=== PATIENT | female | born 1965 | race African-American/Black ===

== ENCOUNTER 2018-01-16 12:35 | Day surgery (SDC) | payer OTHER ==
[~2018-01-16] VITALS: Ht 170.2 cm; Wt 127.0 kg
[2018-01-16] MEDS ORDERED: methylPREDNISolone ACETATE 80 MG/ML IM ONE (12:36)
[2018-01-16] MEDS ORDERED: BUPIVACAINE /PF 0.25% 30 ML VIAL INJ ONE (12:36)
[2018-01-16] MEDS ORDERED: IOHEXOL 300 mgI/mL, 50 mL INFUS..BTL IV ONE (12:36)
[2018-01-16] MEDS ORDERED: LIDOCAINE 2%, 20 ML MDV INJ ONE (12:36)
[2018-01-16] MEDS ORDERED: DIPHENHYDRAMINE INJ 50 MG/ML VIAL IVP ONE (13:58)
[2018-01-16] MEDS ORDERED: MIDAZOLAM HCL 5 MG/5 ML VIAL IVP ONE (14:00)
[2018-01-16] MEDS ORDERED: MIDAZOLAM HCL 5 MG/5 ML VIAL ONE (16:48)
[2018-01-16 17:35] VITALS: BP_SYST 146
[2018-01-16] MEDS ORDERED: DIPHENHYDRAMINE INJ 50 MG/ML VIAL ONE (18:32)
== END 2018-01-16 16:00 | disposition home or self-care (01) ==
LOC: SDS 12:35 → SMU 12:36 → SDS 16:00
PROVIDERS: ATTEND Internal Medicine
DX: M51.16 Intervertebral disc disorders with radiculopathy, lumbar region (principal); E11.9 Type 2 diabetes mellitus without complications; Z79.899 Other long term (current) drug therapy
CPT/HCPCS: 62323; J1040; J1200; J2001; J2250; J3490; J7120; Q9967

== ENCOUNTER 2018-05-29 10:23 | Day surgery (SDC) | payer OTHER ==
[~2018-05-29] VITALS: Ht 170.2 cm; Wt 127.0 kg
[2018-05-29] MEDS ORDERED: BUPIVACAINE /PF 0.25% 30 ML VIAL INJ ONE (10:24)
[2018-05-29] MEDS ORDERED: LIDOCAINE 2%, 20 ML MDV INJ ONE (10:24)
[2018-05-29] MEDS ORDERED: methylPREDNISolone ACETATE 40 MG/ML IM ONE (10:24)
[2018-05-29] MEDS ORDERED: IOPAMIDOL 50 ML VIAL IV ONE (10:24)
[2018-05-29] MEDS ORDERED: MIDAZOLAM HCL 5 MG/5 ML VIAL ONE (11:56)
[2018-05-29] MEDS ORDERED: DIPHENHYDRAMINE INJ 50 MG/ML VIAL ONE (11:56)
[2018-05-29 12:20] VITALS: BP_SYST 140
== END 2018-05-29 13:09 | disposition home or self-care (01) ==
LOC: SDS 10:23
PROVIDERS: ATTEND Internal Medicine
DX: M51.16 Intervertebral disc disorders with radiculopathy, lumbar region (principal); D64.9 Anemia, unspecified; M19.90 Unspecified osteoarthritis, unspecified site; E11.9 Type 2 diabetes mellitus without complications; Z79.4 Long term (current) use of insulin; Z79.899 Other long term (current) drug therapy; G89.29 Other chronic pain; M79.10 Myalgia, unspecified site
CPT/HCPCS: 62323; 82962; J1030; J1200; J2001; J2250; J3490; Q9967; 76000

== ENCOUNTER 2018-09-18 09:00 | Day surgery (SDC) | payer OTHER ==
[~2018-09-18] VITALS: Ht 170.2 cm; Wt 127.0 kg
[2018-09-18] MEDS ORDERED: DIPHENHYDRAMINE INJ 50 MG/ML VIAL ONE ×2 (09:41→10:27)
[2018-09-18] MEDS ORDERED: MIDAZOLAM HCL 5 MG/5 ML VIAL ONE ×2 (09:41→10:26)
[2018-09-18] MEDS ORDERED: methylPREDNISolone ACETATE 40 MG/ML IM ONE (10:27)
[2018-09-18] MEDS ORDERED: IOHEXOL 300 mgI/mL, 50 mL INFUS..BTL IV ONE (10:27)
[2018-09-18] MEDS ORDERED: LR 1,000 ML IV.SOLN IV ONE (10:27)
[2018-09-18] MEDS ORDERED: BUPIVACAINE /PF 0.25% 30 ML VIAL INJ ONE (10:27)
[2018-09-18] MEDS ORDERED: LIDOCAINE 2%, 20 ML MDV INJ ONE (10:27)
[2018-09-18 16:43] VITALS: BP_SYST 143
== END 2018-09-18 12:35 | disposition home or self-care (01) ==
LOC: SDS 09:00 → SMU 09:00 → SDS 12:35
PROVIDERS: ATTEND Internal Medicine
DX: M51.16 Intervertebral disc disorders with radiculopathy, lumbar region (principal); M54.5 Low back pain; D64.9 Anemia, unspecified; E11.9 Type 2 diabetes mellitus without complications; M19.90 Unspecified osteoarthritis, unspecified site; Z79.4 Long term (current) use of insulin; Z79.899 Other long term (current) drug therapy; G89.29 Other chronic pain; M25.562 Pain in left knee
CPT/HCPCS: 62323; 82962; J1030; J1200; J2001; J2250; J3490; J7120; Q9967; 76000

== ENCOUNTER 2019-05-16 09:30 | Day surgery (SDC) | payer OTHER ==
[~2019-05-16] VITALS: Ht 170.2 cm; Wt 122.5 kg
[2019-05-16] MEDS ORDERED: MIDAZOLAM HCL 5 MG/5 ML VIAL ONE (11:48)
[2019-05-16] MEDS ORDERED: DIPHENHYDRAMINE INJ 50 MG/ML VIAL ONE (11:48)
[2019-05-16 13:30] VITALS: BP_SYST 129
== END 2019-05-16 13:00 | disposition home or self-care (01) ==
LOC: SDS 09:30 → SMU 09:32 → SDS 13:00
PROVIDERS: ATTEND Internal Medicine
DX: M47.816 Spondylosis without myelopathy or radiculopathy, lumbar region (principal); M51.9 Unspecified thoracic, thoracolumbar and lumbosacral intervertebral disc disorder; M25.562 Pain in left knee; M25.561 Pain in right knee; G89.4 Chronic pain syndrome; E11.9 Type 2 diabetes mellitus without complications; M19.90 Unspecified osteoarthritis, unspecified site; Z79.4 Long term (current) use of insulin; Z79.899 Other long term (current) drug therapy
CPT/HCPCS: 62323; 82962; J2250; J7120; 76000; J1200

== ENCOUNTER 2021-10-12 07:08 | Day surgery (SDC) | payer MEDICAID ==
[~2021-10-12] VITALS: Ht 170.2 cm; Wt 136.1 kg
[2021-10-12] MEDS ORDERED: DIPHENHYDRAMINE INJ 50 MG/ML VIAL ONE (08:37)
[2021-10-12] MEDS: MIDAZOLAM HCL 5 MG/5 ML VIAL ONE ×2 (09:36→09:38)
[2021-10-12] MEDS ORDERED: BUPIVACAINE /PF 0.25% 30 ML VIAL INJ ONE (11:14)
[2021-10-12] MEDS ORDERED: LIDOCAINE 2%, 20 ML MDV ONE (11:14)
[2021-10-12] MEDS ORDERED: methylPREDNISolone ACETATE 40 MG/ML ONE (11:14)
[2021-10-12 14:27] VITALS: BP_SYST 153
== END 2021-10-12 10:30 | disposition home or self-care (01) ==
LOC: SMU 07:08 → SDS 07:08
PROVIDERS: ATTEND Internal Medicine
DX: M51.16 Intervertebral disc disorders with radiculopathy, lumbar region (principal); M47.816 Spondylosis without myelopathy or radiculopathy, lumbar region; G89.4 Chronic pain syndrome; E11.9 Type 2 diabetes mellitus without complications; M19.90 Unspecified osteoarthritis, unspecified site; M25.562 Pain in left knee; Z79.899 Other long term (current) drug therapy
CPT/HCPCS: 36415; 62323; 82962; U0003; J3490; J1200; J2001; J1030; J2250; 76000

== ENCOUNTER 2022-06-14 07:27 | Day surgery (SDC) | payer MEDICAID ==
[~2022-06-14] VITALS: Ht 170.2 cm; Wt 131.7 kg
[2022-06-14] MEDS ORDERED: DIPHENHYDRAMINE INJ 50 MG/ML VIAL ONE (08:45)
[2022-06-14] MEDS ORDERED: fentaNYL CITRATE/PF 100 MCG/2 ML AMP ONE (08:45)
[2022-06-14] MEDS ORDERED: methylPREDNISolone ACETATE 40 MG/ML ONE (09:00)
[2022-06-14] MEDS ORDERED: ISOVUE-300 (IOPAMIDOL) 100 ML INFUS..BTL IV ONE (09:00)
[2022-06-14] MEDS ORDERED: LIDOCAINE 2%, 20 ML MDV ONE (09:00)
[2022-06-14] MEDS ORDERED: NORMAL SALINE 10 ML VIAL ONE (09:00)
[2022-06-14] MEDS ORDERED: ONDANSETRON HCL 4 MG/2 ML VIAL ONE ×2 (09:00→10:01)
[2022-06-14] MEDS: MIDAZOLAM HCL 5 MG/5 ML VIAL ONE ×2 (10:18→10:22)
[2022-06-14 16:24] VITALS: BP_SYST 145
== END 2022-06-14 12:27 | disposition home or self-care (01) ==
LOC: SDS 07:27 → SMU 07:29 → SDS 12:27
PROVIDERS: ATTEND Internal Medicine
DX: M51.16 Intervertebral disc disorders with radiculopathy, lumbar region (principal); M47.26 Other spondylosis with radiculopathy, lumbar region; E11.9 Type 2 diabetes mellitus without complications; M19.90 Unspecified osteoarthritis, unspecified site; Z79.4 Long term (current) use of insulin; Z79.899 Other long term (current) drug therapy; Z20.822 Contact with and (suspected) exposure to COVID-19
CPT/HCPCS: 62323; 87426; 36415; 82962; J1200; J2001; J1030; J2250; J2405; J3010; Q9967; 76000

== ENCOUNTER 2022-10-18 07:36 | Day surgery (SDC) | payer MEDICAID ==
[~2022-10-18] VITALS: Ht 170.2 cm; Wt 127.0 kg
[2022-10-18] MEDS ORDERED: methylPREDNISolone ACETATE 40 MG/ML ONE (09:00)
[2022-10-18] MEDS ORDERED: LIDOCAINE 2%, 20 ML MDV ONE (09:00)
[2022-10-18] MEDS ORDERED: NORMAL SALINE 10 ML VIAL ONE (09:00)
[2022-10-18] MEDS ORDERED: MIDAZOLAM HCL 5 MG/5 ML VIAL ONE (09:01)
[2022-10-18] MEDS ORDERED: fentaNYL CITRATE/PF 100 MCG/2 ML AMP ONE (09:03)
[2022-10-18] MEDS ORDERED: DIPHENHYDRAMINE INJ 50 MG/ML VIAL ONE (09:05)
[2022-10-18] MEDS ORDERED: FLUMAZENIL 0.1 MG/ML IVP ONE (09:08)
[2022-10-18] MEDS ORDERED: NALOXONE HCL 0.4 MG/ML AMP (NARCAN) ONE (09:09)
[2022-10-18 16:24] VITALS: BP_SYST 152; PULSE 86; RESP 18; TEMP 98.2; O2SAT 99
== END 2022-10-18 10:36 | disposition home or self-care (01) ==
LOC: SDS 07:36 → SMU 07:38 → SDS 10:36
PROVIDERS: ATTEND Internal Medicine
DX: M51.16 Intervertebral disc disorders with radiculopathy, lumbar region (principal); M47.816 Spondylosis without myelopathy or radiculopathy, lumbar region; G89.4 Chronic pain syndrome; E11.9 Type 2 diabetes mellitus without complications; M19.90 Unspecified osteoarthritis, unspecified site; M25.562 Pain in left knee; Z96.651 Presence of right artificial knee joint; Z79.4 Long term (current) use of insulin; Z79.899 Other long term (current) drug therapy
CPT/HCPCS: 62323; J1200; J2001; J1030; J2250; J3010; J7120; 76000; J2310; J3490

== ENCOUNTER 2023-01-10 12:33 | Day surgery (SDC) | payer MEDICAID ==
[~2023-01-10] VITALS: Ht 170.2 cm; Wt 127.0 kg
[2023-01-10] MEDS: DIPHENHYDRAMINE INJ 50 MG/ML VIAL ONE (13:35)
[2023-01-10] MEDS: MIDAZOLAM HCL 5 MG/5 ML VIAL ONE (13:37)
[2023-01-10] MEDS: fentaNYL CITRATE/PF 100 MCG/2 ML AMP ONE (13:39)
[2023-01-10 14:23] VITALS: O2SAT 99
[2023-01-10 17:29] VITALS: BP_SYST 163; PULSE 90; RESP 16
== END 2023-01-10 14:55 | disposition home or self-care (01) ==
LOC: SDS 12:33 → SMU 12:35 → SDS 14:55
PROVIDERS: ATTEND Internal Medicine
DX: M47.26 Other spondylosis with radiculopathy, lumbar region (principal); M54.41 Lumbago with sciatica, right side; M25.562 Pain in left knee; G89.4 Chronic pain syndrome; E11.9 Type 2 diabetes mellitus without complications; M51.9 Unspecified thoracic, thoracolumbar and lumbosacral intervertebral disc disorder; M79.10 Myalgia, unspecified site; Z96.651 Presence of right artificial knee joint; M19.90 Unspecified osteoarthritis, unspecified site; Z79.4 Long term (current) use of insulin; Z79.899 Other long term (current) drug therapy
CPT/HCPCS: 62323; 82962; J1200; J2250; J3010; 76000

== ENCOUNTER 2023-07-11 07:08 | Day surgery (SDC) | payer OTHER, MEDICAID ==
[2023-07-11] MEDS ORDERED: DIPHENHYDRAMINE INJ 50 MG/ML VIAL ONE (09:29)
[2023-07-11 09:30] VITALS: O2SAT 100
[2023-07-11] MEDS: MIDAZOLAM HCL 5 MG/5 ML VIAL ONE (09:44)
[2023-07-11] MEDS: fentaNYL CITRATE/PF 100 MCG/2 ML AMP ONE (09:47)
[2023-07-11] MEDS ORDERED: methylPREDNISolone ACETATE 40 MG/ML ONE (10:00)
[2023-07-11] MEDS ORDERED: BUPIVACAINE /PF 0.25% 30 ML VIAL INJ ONE (10:00)
[2023-07-11] MEDS ORDERED: IOHEXOL 300 mgI/mL, 50 mL INFUS..BTL IV ONE (10:00)
[2023-07-11] MEDS ORDERED: LIDOCAINE MPF 2% 20 MG/1 ML, 5 ML VIAL INH ONE (10:00)
[2023-07-11] MEDS ORDERED: NORMAL SALINE 10 ML VIAL ONE (10:00)
[2023-07-11 15:03] VITALS: BP_SYST 155; PULSE 81; RESP 17
== END 2023-07-11 11:05 | disposition home or self-care (01) ==
LOC: SDS 07:08 → SMU 07:09 → SDS 11:05
PROVIDERS: ATTEND Internal Medicine
DX: M47.26 Other spondylosis with radiculopathy, lumbar region (principal); M54.41 Lumbago with sciatica, right side; M51.9 Unspecified thoracic, thoracolumbar and lumbosacral intervertebral disc disorder; E11.9 Type 2 diabetes mellitus without complications; D64.9 Anemia, unspecified; M19.90 Unspecified osteoarthritis, unspecified site; Z79.84 Long term (current) use of oral hypoglycemic drugs; Z79.899 Other long term (current) drug therapy
CPT/HCPCS: 62323; 82948; J3490; J1030; J2250; J3010; Q9967; 76000; J1200